=== PATIENT | male | born 1985 | race Caucasian/White ===

== ENCOUNTER 2017-01-16 10:33 | Day surgery (SDC) | payer OTHER ==
[2017-01-15 10:42] VITALS: BMI 23.9
[~2017-01-16 10:33] MED LIST: ACETAMINOPHEN 325 MG TABLET (FP) PO PRN
[2017-01-16 11:05] VITALS: TEMP 97.9
[2017-01-16] MEDS: CYCLOPENTOLATE HCL 1% OPHTH SOLN 2 ML BOTTLE OP SCH ×3 (11:20→11:30)
[2017-01-16] MEDS: PHENYLEPHRINE 2.5% OPHTH SOLN 15 ML BOTTLE OP SCH ×3 (11:20→11:30)
[2017-01-16] MEDS: CIPROFLOXACIN HCL 0.3% OPHTH 2.5ML BOTTLE OP SCH ×3 (11:20→11:30)
[2017-01-16] MEDS: TROPICAMIDE 1% OPHTH SOLN 15 ML BOTTLE OP SCH ×3 (11:20→11:30)
[2017-01-16] MEDS: FLURBIPROFEN 0.03% OPHTH SOLN 2.5 ML BOTTLE OP SCH ×3 (11:20→11:30)
[2017-01-16] MEDS ORDERED: LIDOCAINE HCL 2% JELLY (5 ML/TUBE) TP ONE (12:30)
[2017-01-16] MEDS ORDERED: ACETYLCHOLINE 1:100 INTRA-OCUL 20 MG/2 ML KIT ONE (12:35)
[2017-01-16] MEDS ORDERED: MIDAZOLAM HCL 2 MG/2 ML SINGLE DOSE VIAL ONE (12:35)
[2017-01-16] MEDS ORDERED: SODIUM CHLORIDE 0.9% P/F 10 ML VIAL IJ ONE (12:36)
[2017-01-16] MEDS ORDERED: POVIDONE-IODINE 5% OPHTHALMIC PREP 30 ML SOLUTION OD ONE (12:51)
[2017-01-16] MEDS ORDERED: BSS (NA/CA/MG/K) BALANCED SALT SOLUTION OPHTH SOLN 15 ML BOTTLE OD ONE (12:57)
[2017-01-16] MEDS ORDERED: LIDOCAINE HCL 1% PRESERVATIVE FREE - 30ML VIAL IO ONE (12:57)
[2017-01-16] MEDS ORDERED: EPINEPHrine/PF 1 MG/1 ML (1:1,000) AMPULE SQ ONE (12:57)
[2017-01-16] MEDS ORDERED: CHONDROITIN SU A/HYALUR SOD 1 KIT IO ONE (12:57)
[2017-01-16] MEDS ORDERED: ACETYLCHOLINE 1:100 INTRA-OCUL 20 MG/2 ML KIT IO ONE (13:06)
[2017-01-16 14:03] VITALS: BP 105/57; PULSE 56
--- NOTE | 2017-01-17 06:16 | OP ---
DATE OF OPERATION: 01/16/2017 SURGEON: Chong Bell M.D. PREOPERATIVE DIAGNOSIS: Aphakia, right eye. POSTOPERATIVE DIAGNOSIS: Aphakia, right eye. PROCEDURE: Secondary intraocular lens implant, right eye. LENS USED: HOYA, model 231, and the power is +14.50 diopter, serial no. [id number] number [id number]. ANESTHESIA: Topical/MAC. COMPLICATIONS: None. DESCRIPTION OF PROCEDURE: The patient was brought to the operating room and correctly identified along with the operative site as well as the correct intraocular lens reynolds. He was then prepped and draped in the usual sterile fashion including 5% Betadine solution in the conjunctival sac and eyelid drape. An eyelid speculum was then placed into the right eye. The eye was inspected and an opacified intact anterior capsule was noted. A paracentesis port was created, and intracameral lidocaine approximately 0.5 mL of 1% preservative-free lidocaine was given. Viscoelastic was injected to inflate the anterior chamber, and using the cannula, the space beneath the iris was confirmed to be free of any iridocapsular adhesions/synechiae. The temporal clear cornea was created, and the lens was then injected into the sulcus. Miochol was given to constrict the pupil. Viscoelastic was irrigated and aspirated from the eye. The intraocular lens was well centered. All wounds were tested and found to be watertight. No sutures were placed. Topical vancomycin given, the eye patched and shielded, and the patient was discharged from the operating room in a stable condition. Mahogany RUSH/[id number] MTDD
== END 2017-01-16 14:03 | disposition home or self-care (01) ==
LOC: JASU-SURG 10:33
PROVIDERS: ATTEND Ophthalmology
PROC: 08RJ3JZ Replacement of Right Lens with Synthetic Substitute, Percutaneous Approach (ICD-10-PCS; principal; 2017-01-16 12:00)
DX: H27.01 Aphakia, right eye (principal)